=== PATIENT | female | born 1955 | race Caucasian/White ===

== ENCOUNTER → 2017-06-04 | Outpatient (CLI) | payer OTHER ==
[~2017-06-04] MED LIST: CRG40 PO; HYDC25 PO; SIMV10TA2 PO
== END | disposition home or self-care (01) ==
LOC: C.PAPS 16:24
PROVIDERS: ATTEND Obstetrics & Gynecology
DX: Z12.4 Encounter for screening for malignant neoplasm of cervix (principal)

== ENCOUNTER → 2017-06-15 | Outpatient (CLI) | payer OTHER | END | disposition home or self-care (01) | LOC: C.RDSM 11:26 | PROVIDERS: ATTEND Physical Medicine & Rehabilitation Sports Medicine | DX: M25.531 Pain in right wrist (principal) ==

== ENCOUNTER → 2017-06-21 | Outpatient (CLI) | payer OTHER ==
--- NOTE | 2017-06-21 10:45 | DIAGNOSTIC IMAGING REPORT ---
RIGHT WRIST W/NAVICULAR MIN 3 VIEWS CLINICAL HISTORY: Right wrist fracture. COMPARISON: Right wrist radiograph June 15, 2017. FINDINGS: Alignment of the distal right radial fracture with intra-articular extension is unchanged since exam of June 15, 2017. Fracture line remains evident. Fracture is nondisplaced. No additional fractures are identified. IMPRESSION: No change in alignment of the nondisplaced distal right radial fracture with intra-articular extension. Electronically signed by: Leroy Sanford M.D. 06/21/2017 10:44 AM Dictated Date/Time: 06/21/2017 10:42 AM
== END | disposition home or self-care (01) ==
LOC: C.RDSM 10:25
PROVIDERS: ATTEND Physician Assistant
DX: T14.8 Other injury of unspecified body region (principal); X58.XXXA Exposure to other specified factors, initial encounter

== ENCOUNTER → 2017-07-16 | Outpatient (CLI) | payer OTHER | END | disposition home or self-care (01) | LOC: C.RDSM 14:49 | PROVIDERS: ATTEND Physical Medicine & Rehabilitation Sports Medicine | DX: S52.514D Nondisplaced fracture of right radial styloid process, subsequent encounter for closed fracture with routine healing (principal); T14.8 Other injury of unspecified body region; X58.XXXD Exposure to other specified factors, subsequent encounter ==

== ENCOUNTER → 2017-09-13 | Outpatient (CLI) | payer OTHER ==
--- NOTE | 2017-09-13 15:31 | MAMMOGRAPHY REPORT ---
BILATERAL DIGITAL SCREENING MAMMOGRAM TOMOSYNTHESIS WITH CAD: 09/13/2017 CLINICAL HISTORY: Routine screening. TECHNIQUE: Breast tomosynthesis in addition to standard 2D mammography was performed. Current study was also evaluated with a Computer Aided Detection (CAD) system. COMPARISON: Comparison is made to exams dated: 09/12/2016 mammogram, 08/25/2014 mammogram, 5 mammogram, 08/21/2013 mammogram, 08/20/2012 mammogram, and 08/15/2011 mammogram - [facility]. BREAST COMPOSITION: There are scattered areas of fibroglandular density in both breasts. FINDINGS: No suspicious masses, calcifications, or areas of architectural distortion are noted in ei ther breast. There has been no significant interval change compared to prior exams. IMPRESSION: ACR BI-RADS CATEGORY 1: NEGATIVE There is no mammographic evidence of malignancy. A 1 year screening mammogram is recommended. The pa tient will receive written notification of the results. Approximately 10% of breast cancers are not detected with mammography. A negative mammographic report should not delay biopsy if a clinically suggestive mass is present. Cassia Carson M.D. ah/:09/13/2017 14:54:03 [employer] Driver: Bree ARELLANO(Walker)(M), [facility] letter sent: Normal 1/2 BI-RADS Code: ACR BI-RADS Category 1: Negative
== END | disposition home or self-care (01) ==
LOC: C.MAMM 08:44
PROVIDERS: ATTEND Family Medicine
DX: Z12.31 Encounter for screening mammogram for malignant neoplasm of breast (principal)

== ENCOUNTER → 2018-05-28 | Outpatient (CLI) | payer OTHER ==
--- NOTE | 2018-05-28 15:18 | DIAGNOSTIC IMAGING REPORT ---
L FOOT MIN 3 VIEWS ROUTINE CLINICAL HISTORY: M10.9 [id number] Elevated uric acid in [id number] Toe pain, chr pain COMPARISON: None. DISCUSSION: The bones and joint spaces appear intact. There is no evidence of fracture, dislocation or bony disease. There is no evidence for soft tissue swelling. IMPRESSION: Negative study. The above report was generated using voice recognition software. It may contain grammatical, syntax or spelling errors. Electronically signed by: Parminder Ramos M.D. 05/28/2018 3:16 PM Dictated Date/Time: 05/28/2018 3:16 PM
--- NOTE | 2018-05-28 15:22 | DIAGNOSTIC IMAGING REPORT ---
R HAND MIN 3 VIEWS ROUTINE, L HAND MIN 3 VIEWS ROUTINE CLINICAL HISTORY: Bilateral hand pain. COMPARISON STUDY: Right wrist 06/21/2017. Left wrist 06/15/2017. FINDINGS: There are old, healed bilateral distal radius fractures. There is an old nonunited left ulnar styloid fracture. No acute fracture or dislocation within the right or left hand. No gross changes present. Bone mineralization is intact. Soft tissues are unremarkable. Mild cartilage space narrowing within the DIP joints of the second through fourth digits. There is also moderate left and severe right cartilage space narrowing with marginal osteophytes within the DIP joints of the bilateral fifth fingers. IMPRESSION: 1. Osteoarthritis within the bilateral DIP joints as described above most pronounced at the fifth digits. 2. No erosive changes within the bilateral hands. 3. Old, healed bilateral distal radius fractures. Electronically signed by: Darryl Felton M.D. 05/28/2018 3:20 PM Dictated Date/Time: 05/28/2018 3:15 PM
[2018-05-28 15:32] LABS: BASO % 0.2 %; BASO ABS # 0.02 K/uL (0-0.2); EOS % 1.5 %; EOS ABS # 0.13 K/uL (0-0.5); HEMATOCRIT 40.9 % (37-47); IG# 0.03 K/uL (0.00-0.02); LYMPH % 35.1 %; LYMPH ABS # 3.11 K/uL (1.2-3.4); MEAN CELL VOLUME 88.7 fL (80-100); MEAN CORPUSCULAR HEMOGLOBIN 30.4 pg (25-34); MEAN CORPUSCULAR HGB CONC 34.2 g/dl (32-36); MONO % 4.4 %; MONO ABS # 0.39 K/uL (0.11-0.59); NEUT % 58.5 %; NEUT ABS # 5.18 K/uL (1.4-6.5); PLATELET COUNT 237 K/uL (130-400); RED CELL DISTRIBUTION WIDTH CV 12.7 % (11.5-14.5); RED CELL DISTRIBUTION WIDTH SD 40.9 fL (36.4-46.3); WHITE BLOOD COUNT 8.86 K/uL (4.8-10.8)
--- NOTE | 2018-05-28 15:44 | DIAGNOSTIC IMAGING REPORT ---
RIGHT FOOT 3 VIEWS HISTORY: Right foot pain. COMPARISON: None. FINDINGS: There is no fracture or dislocation. Soft tissues are unremarkable. No radiopaque foreign bodies. Bone mineralization is intact. The Lisfranc joint is well aligned. No erosive changes identified. Incidental note is made of an os navicularis. Mild cartilage space narrowing within the DIP joints of the second through fifth toes and interphalangeal joint of the first toe. This is consistent with mild osteoarthritis. Small marginal osteophyte at the interphalangeal joint of the first toe. IMPRESSION: 1. Mild osteoarthritis within the distal toes. 2. No erosive changes. 3. No fractures. Electronically signed by: Darryl Felton M.D. 05/28/2018 3:43 PM Dictated Date/Time: 05/28/2018 3:39 PM
[2018-05-28 15:58] LABS: ALBUMIN 4.1 gm/dl (3.4-5.0); ALKALINE PHOSPHATASE 66 U/L (45-117); ALT/SGPT 30 U/L (12-78); AST/SGOT 19 U/L (15-37); CREATININE 0.91 mg/dl (0.60-1.20); TOTAL PROTEIN 7.3 gm/dl (6.4-8.2); URIC ACID 8.6 mg/dl (2.6-7.2)
== END | disposition home or self-care (01) ==
LOC: C.RAD1850 14:48
PROVIDERS: ATTEND Internal Medicine Rheumatology
DX: M10.9 Gout, unspecified (principal); M79.641 Pain in right hand; M79.642 Pain in left hand; M79.676 Pain in unspecified toe(s); E79.0 Hyperuricemia without signs of inflammatory arthritis and tophaceous disease; M19.041 Primary osteoarthritis, right hand; M19.042 Primary osteoarthritis, left hand